=== PATIENT | male | born 1950 | race Caucasian/White ===

== ENCOUNTER 2020-12-03 12:19 | Inpatient (IN) ==
[2020-12-03] MEDS ORDERED: Senna TAB 8.6 mg TAB PO PRN (13:03)
[2020-12-04 05:56] LABS: ABS Basophils 0.1 10^3/ul (0-0.2); ABS Eosinophils 0.4 10^3/ul (0-0.6); ABS Lymphocytes 1.3 10^3/ul (1.0-4.8); ABS Monocytes 0.9 10^3/ul (0-0.8); ABS Neutrophils 5.3 10^3/ul (1.5-7.7); Eosinophil % 4.6 %; Hematocrit 31 % (42-52); Hemoglobin 10.6 g/dL (14.0-18.0); Lymphocyte % 16.4 %; Mean Corpuscular HGB Conc 34 g/dL (31-36); Mean Corpuscular Hemoglobin 36 pg (27-31); Mean Corpuscular Volume 104 fL (80-94); Mean Platelet Volume 7.2 fL (7.4-10.4); Platelet Count 197 10^3/uL (150-450); Red Blood Count 2.99 10^6 /uL (4.18-5.48); Red Cell Distribution Width 13 % (10-15); White Blood Count 7.8 10^3/uL (3.5-10.8)
[2020-12-04 06:16] LABS: Albumin 3.3 g/dL (3.2-5.2); Albumin/Globulin Ratio 1.2 (1-3); Calcium 8.3 mg/dL (8.6-10.3); EGFR African American 138.7 (>60); EGFR Non-African American 114.6 (>60); Globulin 2.8 g/dL (2-4); Potassium 3.2 mmol/L (3.5-5.0); Total Bilirubin 0.7 mg/dL (0.2-1.0); Total Protein 6.1 g/dL (6.4-8.9)
[2020-12-04] MEDS: Polyethylene Glycol 3350 17 GM PACKET PO SCH (08:48)
[2020-12-04] MEDS ORDERED: Potassium Chlor 20 meq TAB.ER PO ONE (13:15)
[2020-12-04] MEDS: Potassium Chlor 20 meq TAB.ER PO SCH (20:24)
[2020-12-05] MEDS: Potassium Chlor 20 meq TAB.ER PO SCH ×2 (07:58→20:07)
[2020-12-05] MEDS: Polyethylene Glycol 3350 17 GM PACKET PO SCH (07:59)
[2020-12-06 06:38] LABS: Calcium 8.4 mg/dL (8.6-10.3); EGFR African American 163.4 (>60); Potassium 3.9 mmol/L (3.5-5.0)
[2020-12-06] MEDS: Potassium Chlor 20 meq TAB.ER PO SCH ×2 (08:19→22:22)
[2020-12-06] MEDS: Polyethylene Glycol 3350 17 GM PACKET PO SCH (08:20)
[2020-12-07] MEDS: Polyethylene Glycol 3350 17 GM PACKET PO SCH (08:09)
[2020-12-08] MEDS: Polyethylene Glycol 3350 17 GM PACKET PO SCH (08:29)
[2020-12-09 06:20] LABS: ABS Basophils 0.1 10^3/ul (0-0.2); ABS Eosinophils 0.4 10^3/ul (0-0.6); ABS Lymphocytes 1.6 10^3/ul (1.0-4.8); ABS Monocytes 0.7 10^3/ul (0-0.8); ABS Neutrophils 4.5 10^3/ul (1.5-7.7); Eosinophil % 5.9 %; Hematocrit 32 % (42-52); Lymphocyte % 22.4 %; Mean Corpuscular HGB Conc 34 g/dL (31-36); Mean Corpuscular Hemoglobin 35 pg (27-31); Mean Corpuscular Volume 103 fL (80-94); Mean Platelet Volume 6.9 fL (7.4-10.4); Platelet Count 313 10^3/uL (150-450); Red Blood Count 3.14 10^6 /uL (4.18-5.48); Red Cell Distribution Width 13 % (10-15); White Blood Count 7.4 10^3/uL (3.5-10.8)
[2020-12-09] MEDS: Polyethylene Glycol 3350 17 GM PACKET PO SCH (08:27)
[2020-12-10] MEDS: Polyethylene Glycol 3350 17 GM PACKET PO SCH (10:11)
[2020-12-11 06:35] LABS: ABS Basophils 0.1 10^3/ul (0-0.2); ABS Eosinophils 0.3 10^3/ul (0-0.6); ABS Lymphocytes 1.7 10^3/ul (1.0-4.8); ABS Monocytes 0.7 10^3/ul (0-0.8); ABS Neutrophils 4.1 10^3/ul (1.5-7.7); Eosinophil % 4.3 %; Hematocrit 33 % (42-52); Hemoglobin 11.1 g/dL (14.0-18.0); Mean Corpuscular HGB Conc 34 g/dL (31-36); Mean Corpuscular Hemoglobin 35 pg (27-31); Mean Corpuscular Volume 104 fL (80-94); Platelet Count 307 10^3/uL (150-450); Red Blood Count 3.19 10^6 /uL (4.18-5.48); Red Cell Distribution Width 13 % (10-15); White Blood Count 6.8 10^3/uL (3.5-10.8)
[2020-12-11 07:17] LABS: Albumin 3.4 g/dL (3.2-5.2); Calcium 8.6 mg/dL (8.6-10.3); Potassium 3.9 mmol/L (3.5-5.0); Total Bilirubin 0.5 mg/dL (0.2-1.0)
[2020-12-11 07:24] LABS: Albumin/Globulin Ratio 1.2 (1-3); EGFR African American 118.4 (>60); EGFR Non-African American 97.8 (>60); Globulin 2.9 g/dL (2-4); Total Protein 6.3 g/dL (6.4-8.9)
[2020-12-11] MEDS: Polyethylene Glycol 3350 17 GM PACKET PO SCH (09:07)
[2020-12-12] MEDS: Polyethylene Glycol 3350 17 GM PACKET PO SCH (08:11)
[2020-12-13 06:29] VITALS: BP 135/80
[2020-12-13] MEDS: Polyethylene Glycol 3350 17 GM PACKET PO SCH (08:31)
== END 2020-12-13 14:00 | disposition home or self-care (01) | DRG 57 ==
LOC: PMRU 12:19
PROVIDERS: ADMIT Physical Medicine & Rehabilitation; ATTEND Physical Medicine & Rehabilitation

== ENCOUNTER 2024-07-14 09:43 | Observation (INO) ==
[~2024-07-14 09:43] MED LIST: NS 0.45% 1000 ml BAG 1,000 ML IV SCH; Naloxone 0.4 mg VIAL 0.4 mg/ml 1 ml VIAL IV PRN; Ondansetron 4 mg VIAL 2 MG/ML 2 ml VIAL IV PRN; fentaNYL 100 mcg/2 ml 50 MCG/ML VIAL IV PRN
[2024-07-14] MEDS ORDERED: Tranexamic Acid 1 GM/100ML BAG 2,000 MG/200 ML BAG IV ONE (09:59)
[2024-07-14] MEDS ORDERED: ceFAZolin 2 GM PREMIX 2 GM/50 ML BAG ONE (09:59)
[2024-07-14 10:27] LABS: Rapid COVID-19 Molecular Undetected (Undetected)
[2024-07-14] MEDS ORDERED: ROPIVACAINE 5 MG/ML 30 ML BTL (0.5%) ONE ×2 (10:28→12:16)
[2024-07-14] MEDS ORDERED: Dexamethasone IV 4 MG/ML VIAL 1 ml VIAL ONE ×2 (10:30→12:25)
[2024-07-14] MEDS: Lactated Ringers 1000 ml BAG 1,000 ML IV SCH ×2 (10:38→18:27)
[2024-07-14] MEDS: Buffered Lidocaine 1% SYRIN 1 ml INTRADERM ONE (10:39)
[2024-07-14] MEDS ORDERED: Propofol 10 MG/ML 20 ML BTL ONE (12:20)
[2024-07-14] MEDS ORDERED: Lidocaine 2% PF 5 ML VIAL ONE (12:21)
[2024-07-14] MEDS ORDERED: KETAMINE HCL 10 MG/ML 20 ml VIAL (200 MG) ONE (12:23)
[2024-07-14] MEDS ORDERED: fentaNYL 250 mcg/5 ml 50 MCG/ML 5 ml VIAL (250 MCG) ONE (12:23)
[2024-07-14] MEDS ORDERED: Ondansetron 4 mg VIAL 2 MG/ML 2 ml VIAL ONE (12:25)
[2024-07-14] MEDS ORDERED: Rocuronium 50 mg VIAL 10 mg/ml 5 ml VIAL (50 mg) ONE (12:26)
[2024-07-14] MEDS ORDERED: Phenylephrine IV 10 MG/ML 1 ml VIAL ONE (12:54)
[2024-07-14] MEDS ORDERED: Lactulose 30 ml UDC PO PRN (13:18)
[2024-07-14] MEDS ORDERED: Ondansetron ODT 4 mg TAB 4 MG TAB PO PRN (13:18)
[2024-07-14] MEDS ORDERED: Magnesium Hydroxide LIQ 30 ML UDC PO PRN (13:18)
[2024-07-14] MEDS ORDERED: Ondansetron 4 mg VIAL 2 MG/ML 2 ml VIAL IV PRN (13:18)
[2024-07-14] MEDS ORDERED: Morphine 2 MG/ML SYRINGE IV PRN (13:18)
[2024-07-14] MEDS ORDERED: Calcium Carb (TUMS) 500 mg CHEW TAB PO PRN (13:18)
[2024-07-14] MEDS: Acetaminophen IV 1 GM/100ML 1,000 MG/100 ML BAG IV ONE (18:50)
[2024-07-14] MEDS: Magnesium Hydroxide LIQ 30 ML UDC PO SCH (19:53)
[2024-07-15 06:42] LABS: Hematocrit 31.5 % (38-53); Hemoglobin 10.9 g/dL (13.2-16.3); Mean Platelet Volume 7.9 fL (7.5-11.2); Platelet Count 145 10^3/uL (150-450)
[2024-07-15 06:58] LABS: Calcium 7.8 mg/dL (8.6-10.3); Creatinine, Serum 0.8 mg/dL (0.67-1.17); Potassium 4.2 mmol/L (3.5-5.0); eGFR CKD-EPI 92.3 (>60)
[2024-07-15] MEDS: Clindamycin 900 MG/D5W BAG 900 MG/50 ML BAG IVPB SCH (09:19)
[2024-07-15] MEDS: Vitamin THERAPEUTIC TAB PO SCH (09:19)
[2024-07-15 11:14] VITALS: BP 99/64
== END 2024-07-15 12:25 | disposition home or self-care (01) ==
LOC: OR 09:43 → SSU 09:43
PROVIDERS: ADMIT Orthopaedic Surgery Adult Reconstructive Orthopaedic Surgery; ATTEND Orthopaedic Surgery Adult Reconstructive Orthopaedic Surgery